=== PATIENT | male | born 1970 | race Hispanic/Latino ===

== ENCOUNTER 2017-07-25 12:23 | Emergency (ER) | payer BC, OTHER ==
[~2017-07-25] VITALS: Ht 170.2 cm; Wt 68.0 kg
--- NOTE | 2017-07-25 13:43 | Diagnostic Imaging Report ---
EXAMINATION: Head CT HISTORY: Head injury, right-sided head trauma, dizziness, passed out COMPARISON: None available TECHNIQUE: Multidetector axial images were obtained without contrast from the foramen magnum to the vertex . The images were reconstructed using brain and bone algorithms. Thin section brain images were reformatted into coronal and sagittal planes. Intravenous contrast: None. Motion/streaking artifact limits the evaluation of the skull base and posterior cranial fossa. FINDINGS: Parenchyma: 1. No abnormal densities. 2. No mass or hemorrhage. No CT evidence of acute territorial vascular insult. Extra-axial spaces:No abnormal density. No extra-axial fluid collections Brain volume: Normal for age. Ventricles: No hydrocephalus or displacement. Arteries: No density suggestive of thrombus. Dural sinuses: No abnormal density. Extra-axial spaces: No abnormal density. Foramen magnum: No mass, Chiari malformation, or basilar invagination. Sella: No obvious mass. Paranasal/mastoid sinuses: Imaged portions unremarkable. Skull/Scalp: No lytic or blastic lesions. No fractures. IMPRESSION: No intracranial abnormalities, particularly no acute post traumatic hemorrhage. Signed by: Dr. Anjali Valdes M.D. on 07/25/2017 1:39 PM
== END 2017-07-25 16:18 | disposition home or self-care (01) ==
LOC: ER 12:23
DX: R55 Syncope and collapse (principal); W18.09XA Striking against other object with subsequent fall, initial encounter; Y92.002 Bathroom of unspecified non-institutional (private) residence as the place of occurrence of the external cause; F17.210 Nicotine dependence, cigarettes, uncomplicated
CPT/HCPCS: 70450; 99283

== ENCOUNTER 2018-11-20 10:35 | Observation (INO) | payer OTHER ==
[~2018-11-20] VITALS: Ht 170.2 cm; Wt 126.1 kg
--- OUTSIDE RECORDS SUMMARY | 2018-11-20 10:38 | XMS REPORT ---
Author Author [facility] Address Unknown Phone Unavailable Care Team Providers Care Veterinary Toxicologist Name Role Phone Arelis FRAZIER Unavailable Unavailable Problems This patient has no known problems. Allergies, Adverse Reactions, Alerts This patient has no known allergies or adverse reactions. Medications This patient has no known medications. Results Test Description Test Time Test Comments Text Results Atomic Results Result Comments CT BRAIN WO [place] [address] Patient Name: ROSY NIEVES MR #: [id number] : 1970 Age/Sex: 46/M Req #: [id number] Adm Physician: Ordered by: LEIGHA FRAZIER MD Report #: [id number] Location: ER Room/Bed: Procedure: [id number] CT/CT BRAIN WO Exam Date: Exam Time: REPORT STATUS: Signed EXAMINATION: Head CT HISTORY: Head injury, right-sided head trauma, dizziness, passed out COMPARISON: None available TECHNIQUE: Multidetector axial images were obtained without contrast from the foramen magnum to the vertex . The images were reconstructed using brain and bone algorithms. Thin section brain images were reformatted into coronal and sagittal planes. Intravenous contrast: None. Motion/streaking artifact limits the evaluation of the skull base and posterior cranial fossa. FINDINGS: Parenchyma: 1. No abnormal densities. 2. No mass or hemorrhage. No CT evidence of acute territorial vascular insult. Extra-axial spaces:No abnormal density. No extra-axial fluid collections Brain volume: Normal for age. Ventricles: No hydrocephalus or displacement. Arteries: No density suggestive of thrombus. Dural sinuses: No abnormal density. Extra-axial spaces: No abnormal density. Foramen magnum: No mass, Chiari malformation, or basilar invagination. Sella: No obvious mass. Paranasal/mastoid sinuses: Imaged portions unremarkable. Skull/Scalp: No lytic or blastic lesions. No fractures. IMPRESSION: No intracranial abnormalities, particularly no acute post traumatic hemorrhage. Signed by: Dr. Genoveva Madera M.D. on 07/25/2017 1:39 PM Dictated By: GENOVEVA MADERA MD [id number] Transcribed By: ROSLYN on 07/25/17 1331 COPY TO: LEIGHA FRAZIER MD
[2018-11-20] MEDS ORDERED: ASPIRIN 81 MG CHEW TAB PO ONE ×2 (10:45→13:30)
--- NOTE | 2018-11-20 11:05 | NUR ---
PT BROUGHT BACK TO ROOM 1, ASSISTED TO STRETCHER, APPLIED SPORTS ATTORNEY; BREATHING EVEN/UNLABORED, NAD NOTED, CALL LIGHT IN EASY REACH; GIVEN URINAL FOR UA SPECIMEN COLLECTION, WILL CONTINUE TO MONITOR.
[2018-11-20] MEDS ORDERED: LOSARTAN POTASS50 MG PO (11:11)
[2018-11-20] MEDS ORDERED: NEXIUM20 MG PO (11:11)
--- NOTE | 2018-11-20 11:11 | Diagnostic Imaging Report ---
EXAMINATION: CHEST SINGLE (PORTABLE) INDICATION: Chest pain COMPARISON: None FINDINGS: LINES/TUBES:None LUNGS:The lungs are well-inflated. No focal consolidation or pulmonary edema. PLEURA:No pleural effusion or pneumothorax. MEDIASTINUM:The cardiomediastinal silhouette measures at the upper limits of normal. BONES/SOFT TISSUES:No acute osseous injury. ABDOMEN:No free air under the diaphragm. IMPRESSION: No focal pneumonia or pulmonary edema. Signed by: Alisa Ortega MD on 11/20/2018 11:07 AM
[2018-11-20 11:29] LABS: BASOPHILS # (AUTO) 0.1 (0.0-0.1); BASOPHILS % 0.8 % (0.0-1.0); EOSINOPHILS # (AUTO) 0.2 (0.0-0.4); EOSINOPHILS % 1.6 % (0.0-6.0); HEMOGLOBIN 15.2 g/dL (14.0-18.0); LYMPHOCYTES # (AUTO) 2.4 (1.0-3.2); LYMPHOCYTES % 25.8 % (18.0-39.1); MEAN CORPUSCULAR HGB CONC 34.5 g/dL (31-35); MEAN CORPUSCULAR VOLUME 83.8 fL (81-99); MONOCYTES # (AUTO) 0.4 (0.2-0.8); MONOCYTES % 4.1 % (4.4-11.3); NEUTROPHILS # (AUTO) 6.1 (2.1-6.9); NEUTROPHILS % 66.3 % (38.7-80.0); PLATELET COUNT 266 x10e3/uL (140-360); RED BLOOD COUNT 5.25 x10e6/uL (4.3-5.7)
[2018-11-20 11:38] LABS: INR 0.91; PROTHROMBIN TIME 12.7 seconds (11.9-14.5)
[2018-11-20 11:39] LABS: PARTIAL THROMBOPLASTIN TIME 28.7 seconds (23.8-35.5)
[2018-11-20 11:46] LABS: ALANINE AMINOTRANSFERASE 49 IU/L (0-55); ALBUMIN 3.8 g/dL (3.5-5.0); ALBUMIN/GLOBULIN RATIO 1.2 (0.8-2.0); ALKALINE PHOSPHATASE 104 IU/L (40-150); ANION GAP 13.3 mmol/L (8-16); BLOOD UREA NITROGEN 12 mg/dL (7-26); BUN/CREATININE RATIO 14 (6-25); CARBON DIOXIDE 25 mmol/L (22-29); CHLORIDE 104 mmol/L (98-107); CREATINE KINASE 135 IU/L (30-200); CREATININE, SERUM 0.88 mg/dL (0.72-1.25); EST GLOMERULAR FILTRATION RATE > 60 ML/MIN (60-); GLUCOSE 117 mg/dL (74-118); MAGNESIUM 1.9 MG/DL (1.3-2.1); POTASSIUM 3.3 mmol/L (3.5-5.1); SODIUM 139 mmol/L (136-145)
[2018-11-20] MEDS ORDERED: POTASSIUM CHLORIDE 20 MEQ TAB CR PO ONE (12:30)
--- NOTE | 2018-11-20 12:40 | NUR ---
PT HAD DIFFICULTY SWALLOWING K-DUR MEDICATION, SPIT OUT ONE TAB; NOTIFIED KEVIN ABEL.
--- NOTE | 2018-11-20 14:08 | NUR ---
BEDSIDE REPORT TO KEMAL Quiñones
[2018-11-20] MEDS ORDERED: ACETAMINOPHEN 325 MG TAB PO PRN (14:15)
[2018-11-20] MEDS ORDERED: PANTOPRAZOLE SOD 40 MG TABEC PO PRN (14:15)
[2018-11-20] MEDS ORDERED: ONDANSETRON HCL INJ 2MG/ML 2ML 2 MG/ML VIAL IV PRN (14:15)
[2018-11-20 14:53] LABS: BILIRUBIN,URINE NEGATIVE (NEGATIVE); CLARITY,URINE CLEAR (CLEAR); COLOR,URINE YELLOW (YELLOW); KETONES,URINE NEGATIVE (NEGATIVE); LEUKOCYTE ESTERASE ,URINE NEGATIVE (NEGATIVE); NITRITE,URINE NEGATIVE (NEGATIVE); PROTEIN,URINE DIPSTICK NEGATIVE (NEGATIVE); URINE UROBILINOGEN 0.2 mg/dL (0.2 - 1)
[2018-11-20 15:57] LABS: RBC,URINE 0-5 /HPF (0-5)
[2018-11-20] MEDS ORDERED: ENOXAPARIN SODIUM INJ 100 MG/ML SYR SC ONE (18:00)
[2018-11-20] MEDS: SODIUM CHLORIDE 0.9% 1000ML 1,000 ML IV SCH (18:59)
[2018-11-20] MEDS: METOPROLOL TARTRATE 25 MG TAB PO SCH (18:59)
--- NOTE | 2018-11-20 19:10 | NUR ---
REPORT GIVEN TO KHUSHBU ANDERSEN HOISTER NURSE.
--- NOTE | 2018-11-20 19:56 | Consultation ---
DATE OF CONSULTATION: 11/20/2018 Cardiology Consultation. REASON FOR CONSULTATION: Chest pain. CONSULTING PHYSICIAN: Delvin Barber. HISTORY OF PRESENT ILLNESS: A 48-year-old man with history of morbid obesity, hypertension, and dyslipidemia, presents via the emergency department with complaints of worsening crescendo chest discomfort, shortness of breath with activity, increasing in frequency, duration and intensity, occurring with less effort over the course of this last week. He has noted associated lightheadedness at times. He denies any associated palpitations or syncope. Symptoms are life-limiting and significant concern to the patient for which he seek evaluation in the emergency department. He is currently chest pain free. REVIEW OF SYSTEMS: A 12-system review is negative except for as noted above. ALLERGIES: NO KNOWN DRUG ALLERGIES. PAST MEDICAL HISTORY: Significant for hypertension and dyslipidemia. SOCIAL HISTORY: Former smoker, no alcohol or drugs. FAMILY HISTORY: Noncontributory. CARDIOVASCULAR MEDICATIONS: 1. Atorvastatin 80 mg at bedtime. 2. Lovenox 100 mg subcu q.12 hours. 3. Aspirin 81 mg daily. 4. Metoprolol tartrate 25 mg every 12 hours. HOME MEDICATIONS: Reviewed. Please see medication reconciliation form. PHYSICAL EXAMINATION: VITAL SIGNS: Temperature 98.5, heart rate 78, respiratory rate 16, blood pressure 140/87, O2 saturation 98% on room air. GENERAL: No acute distress, alert, active, oriented x3. NECK: No JVD or carotid bruits. CHEST: Clear to auscultation bilaterally. CARDIOVASCULAR: Regular rate and rhythm, normal S1, S2, no S3 or S4. ABDOMEN: Soft and nontender. EXTREMITIES: Trace edema, warm distal extremities. LABORATORY DATA: EKG sinus rhythm, no significant ST changes. White blood cells 9.2, hemoglobin 15.2, platelets 266. INR 0.9. Sodium 139, potassium 3.3, chloride 104, bicarbonate 25, BUN 12, creatinine 0.88, glucose 117, calcium 9, magnesium 1.9. AST 24, ALT 49, alkaline phosphatase 104. CK 135, troponin I less than 0.001, BNP 14.9, total protein 7.1, albumin 3.8. ASSESSMENT: A 48-year-old man presenting with unstable angina, history of hypertension, dyslipidemia, morbid obesity, former smoker. RECOMMEND: 1. Initiate Lovenox therapeutic anticoagulation 1 mg/kg subcu. 2. Aspirin. 3. Statin. 4. Initiate beta-caroline therapy. 5. Discussed at length indications, alternatives, and risks and benefits for coronary angiography and possible intervention. We will schedule, the patient voices understanding and agrees. Echocardiogram ordered and pending and will review once available. I thank Dr. Au for the opportunity to participate in the care of Mr. Sparks. Please feel free to call with any questions or concerns. Delvin Barber MD AFGaviota/MODL /[id number]
[2018-11-20 19:57] LABS: CREATINE KINASE 127 IU/L (30-200)
[2018-11-20] MEDS ORDERED: ATORVASTATIN 40 MG TAB PO SCH (21:00)
[2018-11-20] MEDS ORDERED: ATORVASTATIN 20 MG TAB PO SCH (21:00)
--- NOTE | 2018-11-20 21:50 | NUR ---
PT ARRIVED ON THE UNIT VIA STRETCHER AT 2150. RESPIRATION IS EVEN AND UNLABORED, NO DISTRESS NOTED. BED IN THE LOWEST POSITION, LOCKED, AND CALL LIGHT WITHIN REACH. WILL CONTINUE TO MONITOR.
[2018-11-20 22:32] VITALS: BP 131/80
[2018-11-20 23:34] VITALS: BP 131/80
[2018-11-20 23:35] VITALS: BP 118/70
[2018-11-20 23:55] VITALS: BP 118/70
[2018-11-21] VITALS (10 sets, daily range): BP systolic 115–142; BP diastolic 63–99
[2018-11-21] MEDS: SODIUM CHLORIDE 0.9% 1000ML 1,000 ML IV SCH (05:04)
[2018-11-21] MEDS: METOPROLOL TARTRATE 25 MG TAB PO SCH (05:04)
[2018-11-21 05:42] LABS: BASOPHILS # (AUTO) 0.1 (0.0-0.1); BASOPHILS % 1.1 % (0.0-1.0); EOSINOPHILS # (AUTO) 0.2 (0.0-0.4); EOSINOPHILS % 2.3 % (0.0-6.0); HEMATOCRIT 43.6 % (38.2-49.6); HEMOGLOBIN 14.6 g/dL (14.0-18.0); LYMPHOCYTES # (AUTO) 2.9 (1.0-3.2); LYMPHOCYTES % 30.8 % (18.0-39.1); MEAN CORPUSCULAR HEMOGLOBIN 28.8 pg (28-32); MEAN CORPUSCULAR HGB CONC 33.5 g/dL (31-35); MONOCYTES # (AUTO) 0.6 (0.2-0.8); MONOCYTES % 6.4 % (4.4-11.3); NEUTROPHILS # (AUTO) 5.5 (2.1-6.9); PLATELET COUNT 262 x10e3/uL (140-360); RED BLOOD COUNT 5.07 x10e6/uL (4.3-5.7); RED CELL DISTRIBUTION WIDTH 13.2 % (11.7-14.4)
[2018-11-21 06:14] LABS: CREATINE KINASE 122 IU/L (30-200)
[2018-11-21 06:33] LABS: CHOL/HDL RATIO 5.7 (3.9-4.7)
[2018-11-21 06:41] LABS: BLOOD UREA NITROGEN 11 mg/dL (7-26); BUN/CREATININE RATIO 12 (6-25); CALCIUM 8.8 mg/dL (8.4-10.2); CARBON DIOXIDE 24 mmol/L (22-29); CHLORIDE 105 mmol/L (98-107); EST GLOMERULAR FILTRATION RATE > 60 ML/MIN (60-); GLUCOSE 114 mg/dL (74-118); SODIUM 138 mmol/L (136-145)
--- NOTE | 2018-11-21 06:50 | NUR ---
rounded with slot shift supervisor nurse, patient alert and oriented and in no distress. call mahan within reach and bed in lowest position.
[2018-11-21] MEDS ORDERED: HEPARIN SOD (PORCINE) 1000 UNIT/ML 30ML ONE (08:07)
[2018-11-21] MEDS ORDERED: VERAPAMIL HCL 2.5 MG/ML 2 ML VIAL ONE (08:07)
[2018-11-21] MEDS ORDERED: MIDAZOLAM HCL 2 MG/2 ML VIAL ONE (08:07)
[2018-11-21] MEDS ORDERED: FENTANYL CITRATE/PF 100MCG/2 ML INJ ONE (08:08)
[2018-11-21] MEDS ORDERED: LIDOCAINE HCL 2% LOCAL 20 ML VIAL ONE (08:08)
[2018-11-21] MEDS ORDERED: HEPARIN SOD/SOD CHLORIDE 2,000 ML ONE (08:10)
[2018-11-21] MEDS ORDERED: IOPAMIDOL 370 MG/ML 200 ML INFUS..BTL INJ ONE ×2 (08:10→15:20)
[2018-11-21] MEDS ORDERED: NITROGLYCERIN/D5W 200 MCG/ML 250 ML ONE (08:11)
[2018-11-21] MEDS ORDERED: SODIUM CHLORIDE 0.9% 1000ML 1,000 ML ONE (08:11)
[2018-11-21] MEDS ORDERED: ONDANSETRON HCL 4 MG ORAL DISINTEGRATING TAB PO PRN (08:15)
--- NOTE | 2018-11-21 08:40 | NUR ---
patient alert and oriented, leaving unit at this time for heart cath procedure.
[2018-11-21] MEDS ORDERED: ASPIRIN 81 MG CHEW TAB PO SCH ×2 (09:00)
[2018-11-21] MEDS ORDERED: LOSARTAN POTASSIUM 25 MG TAB PO SCH ×2 (09:00)
[2018-11-21] MEDS ORDERED: NON-FORMULARY MEDICATION (Losartan Potassium 50 MG) PO SCH (09:00)
[2018-11-21] MEDS ORDERED: ASPIRIN 325 MG TAB PO SCH (09:00)
--- NOTE | 2018-11-21 09:45 | NUR ---
0945 Bedside report received from Arsalan RÍOS. Identifierx2, Alert oriented and appropriate, PERRLA, respirations even and unlabored to room air. Pulses x4 extremities equal and strong. Pedal pulses PT/DP x4 and Cap fill brisk < 3 sec. [facility] no fix rt TRband approach .Dr Young, NO FIX , TR BAND MAY COME DOWN (AIR 12CC) AT 1030) Skin warm and dry integrity appears D/I. IV 20g to rt ac at 100cchr til iv up 1 liter. (reinforced site)presents healthy w/o s/s of infiltration or complaint. Abdomen soft and supple. pt offered toileting, denies need to urinate or defecate. No personal affects with patient. Family ()[phone]. Pt and family verbalizes understanding of POC. Currently w/o complaint of pain or need. ds/china
[2018-11-21] MEDS ORDERED: SODIUM CHLORIDE 0.9% 1000ML 1,000 ML IV SCH (09:50)
--- NOTE | 2018-11-21 10:30 | NUR ---
1030 RADIAL Compression removal: Initial Cuff volume 12 cc 1030 -2 cc Removed No hematoma/bleeding noted with normal neurovascular function. 1045 -5 cc Removed No hematoma/ bleeding noted with normal neurovascular function. 1100 -5 cc Removed No hematoma/bleeding noted with normal neurovascular function. Air removal completed.Prepare transfer back to floor care . Radial site care reviewed and copy diagram and teaching tool signed by family and copies gieven to pt. Aware must remove in am. Stasis achieved sterile 2x2,Tegaderm, Coban dressing No hematoma, bleeding noted with normal neurovascular function. Wrist splint in place. Pt instructed on POC. Ds/Rn
--- NOTE | 2018-11-21 11:00 | NUR ---
1100 Radial access stable with stasis achieved at 1100am Coban dressing with wrist support in place. Normal neuro vascular function. Report to Ewelina RÍOS Pt back to baseline orientation. Tolerating po intake. Has copies of heart diagram, radial teaching tool and work excuse for . Denies CP,SOB NO gross issues pain pallor pressure or dysthymia. Transported back to floor per bed with tele on. Left patient in room with call light at reach aware of importance to ask for assistance. andres/china
--- NOTE | 2018-11-21 11:20 | NUR ---
patient arrived back to unit at this time, alert and oriented and in no distress. arm splint in place until the AM, pulses present, no hematoma or bleeding present. will continue to monitor closely. call mahan within reach and bed in lowest position.
--- NOTE | 2018-11-21 11:55 | Operative Report ---
DATE OF PROCEDURE: 11/21/2018 SURGEON: Delvin Barber MD STUDY: Left heart catheterization and coronary angiography. PROCEDURE INDICATION: Unstable angina in a patient, who is former smoker with hypertension, dyslipidemia, and morbid obesity. PROCEDURE SUMMARY: After sterile prep and drape and once consent obtained, the patient was anesthetized with 2% lidocaine at the right radial site. Access was obtained and a 5-Cambodian slender sheath advanced over a wire via Seldinger technique. A 2.5 mg of verapamil, 300 mcg of nitroglycerin, 5000 units were administered via the sheath and a 5-Cambodian stick catheter was advanced over Wholey wire to the proximal ascending aorta, where the aortic valve was crossed and hemodynamic measurements were obtained with no left ventriculogram performed. Thereafter, the catheter was pulled back confirming hemodynamics and engaged in left main for angiography in multiple views and thereafter the right coronary artery with angiography performed in multiple views. These were the following findings. 1. LV pressure was 123/6 with end-diastolic pressure of 10. 2. Aortic pressure was 119/82. 3. Left main is large in caliber with luminal irregularities. It gives an LAD and circumflex. 4. LAD has luminal irregularities. It gives small diagonals and septal perforators throughout as a course to the apex or rubs around and ends. 5. Circumflex is large in caliber with 3 small caliber and short obtuse marginals and 2 large caliber left posterolateral branches. Luminal irregularities are noted throughout this vessel and its branches. 6. Right coronary artery is dominant with luminal irregularities. It is large in caliber, gives 2 RV marginals and a terminal small caliber RPDA and RPLV. Of note, overall coronary arteries are on the larger side in caliber with MIRIAM 2.5 flow throughout. CONCLUSION: No evidence of obstructive coronary artery disease with luminal irregularities noted throughout the coronary tree and predominant large caliber vessels with MIRIAM 2.5 flow throughout in the setting of LVEDP of 10 and preserved left ventricular systolic function on echocardiogram. RECOMMENDATIONS: 1. Continue evaluation for alternative etiologies for chest pain. 2. Wean TR band. 3. Risk factor optimization. Delvin Barber MD AFV/MODL /[id number]
--- NOTE | 2018-11-21 12:00 | Progress Note ---
DATE: 11/21/2018 Cardiology Progress Note SUBJECTIVE: No new complaints. Denies recurrent chest pain or shortness of breath. OBJECTIVE: VITAL SIGNS: Temperature 96 degrees, heart rate 82, respiratory rate 16, blood pressure 129/76, and O2 saturation 99% on room air. GENERAL: No acute distress. Alert and active. NECK: No JVD. CHEST: Clear to auscultation. CARDIOVASCULAR: Regular rate and rhythm. Normal S1 and S2. No S3, no S4. ABDOMEN: Soft, nontender, and nondistended. EXTREMITIES: No cyanosis, clubbing, or edema. CARDIOVASCULAR MEDICATIONS: Reviewed. Lipitor 80 mg at bedtime, aspirin 81 mg daily, metoprolol tartrate 25 mg every 12 hours, and losartan 25 mg daily. STUDIES: Reviewed. Sodium 138, potassium 4, chloride 105, bicarbonate 24, BUN 11, creatinine 0.9, glucose 114, and calcium 8.80. Cardiac biomarkers negative x3. Triglycerides 135, total cholesterol 159, LDL 104, and HDL 28. Telemetry, normal sinus rhythm. ASSESSMENT: 1. Chest pain concerning for unstable angina. 2. History of hypertension. 3. Dyslipidemia. 4. Morbid obesity. 5. Former smoker. RECOMMENDATIONS: 1. Continue current cardiovascular medications. 2. Coronary angiogram, possible intervention planned for today, report to follow. 3. On echocardiogram has preserved left ventricular systolic function. MD JavierV/BERTRAND /[id number]
--- NOTE | 2018-11-21 13:18 | Diagnostic Imaging Report ---
CT of the chest, PE protocol, with contrast, 11/21/2018. History: Chest pain. Comparison: Chest x-ray from earlier today. Technique: Multidetector thin collimation CT scanning of the chest was performed from the level of the apices to the upper abdomen during the pulmonary arterial phase, after intravenous administration of contrast. Coronal and sagittal MIP reformations were obtained. RADIATION DOSE: Total DLP: 565 mGy*cm Dose modulation, iterative reconstruction, and/or weight based adjustment of the mA/kV was utilized to reduce the radiation dose to as low as reasonably achievable. Discussion: Chest: The pulmonary arteries are well-opacified without evidence of filling defect or vessel cut off. The main pulmonary artery is normal in size measuring 2.5 cm in diameter. The heart and aorta are normal in size. Thyroid is unremarkable. There is no axillary or mediastinal adenopathy. There is bibasilar atelectasis. No evidence of consolidation, mass, or effusion. Limited evaluation of the upper abdomen shows normal bilateral adrenal glands. Bones and soft tissues: No acute abnormality. Mild degenerative changes are present throughout the thoracic spine. IMPRESSION: No evidence of acute pulmonary embolism or pulmonary abnormality. Signed by: Jared Cervantes on 11/21/2018 1:15 PM
[2018-11-21] MEDS ORDERED: Atorvastatin PO (14:50)
[2018-11-21] MEDS ORDERED: ASPIRIN CHEW81 MG PO (14:50)
[2018-11-21] MEDS ORDERED: LOPRESSOR25 MG PO (14:50)
[2018-11-21] MEDS ORDERED: SODIUM CHLORIDE 0.9% 50ML 50 ML ONE (15:20)
--- NOTE | 2018-11-21 15:35 | NUR ---
patient alert and oriented, discharge instructions given at this time, patient verbalized understanding. IV discontinued, catheter in tact and small dressing applied. patient refused wheelchair assistance but will ambulate with assist to personal auto for to drive home.
--- NOTE | 2018-11-21 22:59 | Discharge Summary ---
CONSULTING PHYSICIAN: Delvin Barber MD, with Cardiology. PRIMARY CARE PHYSICIAN: [facility]. FINAL DIAGNOSES: 1. Chest pain, ruled out acute coronary syndrome. 2. Hypertension. 3. Dyslipidemia. 4. Morbid obesity. HOSPITAL COURSE: This is a 48-year-old male with history of hypertension, hyperlipidemia, and morbid obesity, presented with complaints of chest pain that has progressively gotten worse over time. Chest x-ray was unremarkable, cardiac enzymes were negative, consulted Cardiology Dr. Young for recurrent chest pain. He had a recent stress test, which was negative. He underwent left heart catheterization, which was insignificant. He was started on statin, metoprolol, and aspirin. CTA of the chest was negative for PE. Today, his symptoms have improved, he is advised to follow up with his primary care doctor for further workup such as sleep study test. MEDICATIONS: See medication list. PHYSICAL EXAMINATION: VITAL SIGNS: Temperature 96.4, pulse is 74, BP is 142/80, respirations 15, and SpO2 is 99%. GENERAL: Appears to be in no acute distress. NECK: Supple. LUNGS: Clear to auscultation. CARDIOVASCULAR: Normal rate and rhythm. ABDOMEN: Soft and nontender. EXTREMITIES: No edema. Normal capillary refill and active ROM. NEUROLOGIC: Alert, awake, and oriented x3. CONDITION AT DISCHARGE: Stable and improved chest pain. FOLLOWUP: Follow up with PCP in 1 to 2 weeks. Total time of discharge is 33 minutes. Dictated by TRINY Champagne Abiola Au MD MY/MODL /[id number] cc: [facility] The patient was seen and examined. Agree with the findings and plan as documented by TRINY Galan. WHITNEY
== END 2018-11-21 15:50 | disposition home or self-care (01) ==
LOC: ER 10:35 → ERHOLD 13:29 → IMCU 22:02
PROVIDERS: ADMIT Internal Medicine; ATTEND Internal Medicine
DX: R07.89 Other chest pain (principal); I10 Essential (primary) hypertension; E78.5 Hyperlipidemia, unspecified; K21.9 Gastro-esophageal reflux disease without esophagitis; E66.01 Morbid (severe) obesity due to excess calories; Z68.41 Body mass index [BMI] 40.0-44.9, adult; G51.0 Bell's palsy; Z82.49 Family history of ischemic heart disease and other diseases of the circulatory system; Z87.891 Personal history of nicotine dependence; E87.6 Hypokalemia; Z79.82 Long term (current) use of aspirin
CPT/HCPCS: 36415; 71045; 71260; 80048; 80053; 80061; 81001; 82550; 82553; 83735; 83880; 84484; 85025; 85610; 85730; 93005; 93306; 93458; 99284; C1769; C1887; G0378; J1644; J1650; J2001; J2250; J3010; J7030; Q9967